=== PATIENT | male | born 1965 | race Caucasian/White ===

== ENCOUNTER 2018-11-10 09:00 | Day surgery (SDC) | payer OTHER ==
[~2018-11-10] VITALS: Ht 170.2 cm; Wt 96.9 kg
[2018-11-10] MEDS ORDERED: ASPIRIN (09:50)
[2018-11-10] MEDS ORDERED: ATORVASTATIN (09:51)
[2018-11-10] MEDS ORDERED: FENOFIBRATE (09:51)
[2018-11-10] MEDS ORDERED: BASAGLAR (09:51)
[2018-11-10] MEDS ORDERED: JANUMET ×2 (09:52→09:53)
[2018-11-10] MEDS ORDERED: HUMALOG (09:52)
--- NOTE | 2018-11-10 09:54 | PREAC ---
Date/Time of Note Date/Time of Note DATE: 11/10/18 TIME: 09:52 Anesthesia Eval and Record Evaluation Time Pre-Procedure Interview DATE: 11/10/18 TIME: 09:52 Age 53 Sex male NPO: 8 hrs Preoperative diagnosis screening Planned procedure colonoscopy Past Medical History Past Medical History: Includes Cardio: HTN, CAD, CABG (2006), Other (METS>4) Endo: Diabetes Surgery & Anesthesia Issues No known issue Meds Anticoagulation: No Beta Dolores within 24 hr: No Reason Beta Dolores not given: Pt. not on B-Dolores Reported Medications [Fenofibrate] No Conflict Check 11/10/18 [Basaglar] No Conflict Check 11/10/18 [Atorvastatin] No Conflict Check 11/10/18 [Aspirin] No Conflict Check 11/10/18 Meds reviewed: Yes Allergies Uncoded Allergies: UNKNOWN ANTIBIOTIC (Allergy, Intermediate, RASH, 11/10/18) Allergies Reviewed: Yes Labs/Studies Labs Reviewed: Reviewed by anesthesiologist test: N/A Studies: ECG (sr), CXR (n/a) Pre-procedure Exam Airway: Adequate mouth opening Mallampati: Mallampati I Teeth: Normal Lung: Normal Heart: Normal ASA Physical Status ASA physical status: 2 Emergency: None Planned Anesthetic General/MAC: MAC Planned Pain Management Parenteral pain med Pre-operative Attestations Prior to commencing anesthesia and surgery, the patient was re-evaluated, there was verification of: *The patient's identity *The results of appropriate recent lab work and preoperative vital signs *The above evaluation not changing prior to induction *Anesthetic plan, risk benefits, alternative and complications discussed with patient/family; questions answered; patient/family understands, accepts and wishes to proceed. ONEIDA HERNANDEZ MD Nov 10, 2018 09:54
[2018-11-10 09:59] VITALS: Ht 170.2 cm; Wt 96.9 kg
[2018-11-10 10:03] VITALS: BP 144/71; PULSE 98; RESP 19
[2018-11-10] MEDS ORDERED: FENTAnyl 50 MCG/ML VIAL ONE (10:03)
[2018-11-10] MEDS ORDERED: PROPOFOL 20 ML ONE (10:03)
[2018-11-10] MEDS ORDERED: ETOMIDATE 20 MG INJ ONE (10:06)
--- NOTE | 2018-11-10 10:43 | PAC ---
Date/Time of Note Date/Time of Note DATE: 11/10/18 TIME: 10:43 Post-Anesthesia Notes Post-Anesthesia Note Last documented vital signs Vital Signs Date Temp Pulse Resp B/P (MAP) Pulse Ox O2 O2 Flow FiO2 Time Delivery Rate 11/10/18 97.9 98 19 144/71 99 Room Air 10:03 (95) Activity: WNL Respiratory function: WNL Cardiovascular function: WNL Mental status: Baseline Pain reasonably controlled: Yes Hydration appropriate: Yes Nausea/Vomiting absent: No ONEIDA HERNANDEZ MD Nov 10, 2018 10:43
[2018-11-10 10:55] VITALS: BP 113/65; RESP 18
== END 2018-11-10 12:31 | disposition home or self-care (01) ==
LOC: GIL 09:00
PROVIDERS: ATTEND Internal Medicine Gastroenterology
DX: Z12.11 Encounter for screening for malignant neoplasm of colon (principal); K64.8 Other hemorrhoids; E11.9 Type 2 diabetes mellitus without complications; I25.10 Atherosclerotic heart disease of native coronary artery without angina pectoris; I10 Essential (primary) hypertension
CPT/HCPCS: 45378; 82962; J3010; Z7610